=== PATIENT | female | born 1995 | race Caucasian/White ===

== ENCOUNTER 2018-05-12 14:42 | Emergency (ER) | payer BC ==
[2018-05-12 15:11] VITALS: RESP 18
--- NOTE | 2018-05-12 17:12 | ED ---
Female Urogenital HPI - General Chief complaint: Abdominal Pain Stated complaint: and spotting Time Seen by Provider: 05/12/18 16:50 Source: patient, RN notes reviewed, old records reviewed Mode of arrival: ambulatory Limitations: no limitations - History of Present Illness Initial comments: This is a 22-year-old female the ER. Patient presents today for evaluation regards to history of positive test, positive vaginal bleeding and spotting. Occasional abdominal pain and cramping. Patient has a history of 1 prior positive she said she is currently with live vaginal delivery. Patient has no fevers. No dysuria. Patient did take Plan B after having sexual intercourse in the case that she thinks resulted in this . MD Complaint: vaginal bleeding, pelvic pain -: days(s) Location: suprapubic Radiation: non-radiating Severity: mild Severity scale (1-10): 2 Quality: cramping Consistency: intermittent Improves with: none Worsens with: none Last Menstrual Period: 04/03/18 Patient : Yes Associated Symptoms: denies other symptoms - Related Data Home Medications Medication Instructions Recorded Confirmed Albuterol Inhaler [Ventolin Hfa 2 puff INHALATION RT-Q8H 05/12/18 05/12/18 Inhaler] Allergies Allergy/AdvReac Type Severity Reaction Status Date / Time Penicillins Allergy Rash/Hives Verified 05/12/18 17:10 Review of Systems ROS Statement: Those systems with pertinent positive or pertinent negative responses have been documented in the HPI. ROS Other: All systems not noted in ROS Statement are negative. Past Medical History Past Medical History: Asthma, Skin Disorder History of Any Multi-Drug Resistant Organisms: None Reported Past Surgical History: No Surgical Hx Reported Past Anesthesia/Blood Transfusion Reactions: No Reported Reaction Past Psychological History: No Psychological Hx Reported Smoking Status: Current every day smoker Past Alcohol Use History: None Reported Past Drug Use History: None Reported General Exam Limitations: no limitations General appearance: alert, in no apparent distress Head exam: Present: atraumatic, normocephalic, normal inspection Eye exam: Present: normal appearance, PERRL, EOMI. Absent: scleral icterus, conjunctival injection, periorbital swelling ENT exam: Present: normal exam, mucous membranes moist Neck exam: Present: normal inspection. Absent: tenderness, meningismus, lymphadenopathy Respiratory exam: Present: normal lung sounds bilaterally. Absent: respiratory distress, wheezes, rales, rhonchi, stridor Cardiovascular Exam: Present: regular rate, normal rhythm, normal heart sounds. Absent: systolic murmur, diastolic murmur, rubs, gallop, clicks GI/Abdominal exam: Present: soft, normal bowel sounds. Absent: distended, tenderness, guarding, rebound, rigid Extremities exam: Present: normal inspection, full ROM, normal capillary refill. Absent: tenderness, pedal edema, joint swelling, calf tenderness Back exam: Present: normal inspection Neurological exam: Present: alert, oriented X3, CN II-XII intact Psychiatric exam: Present: normal affect, normal mood Skin exam: Present: warm, dry, intact, normal color. Absent: rash Course Vital Signs 05/12/18 05/12/18 15:08 17:30 Temperature 98.3 F Pulse Rate 83 74 Respiratory 18 18 Rate Blood Pressure 101/70 96/56 O2 Sat by Pulse 98 98 Oximetry - Reevaluation(s) Reevaluation #1: 05/12/18 19:12 Medical record reviewed Reevaluation #2: 05/12/18 19:12 Patient spoke at length regarding possibilities of including threatened or missed versus ectopic although unlikely with positive findings of early IUP. Patient will follow-up with OB Dr. Lyle Medical Decision Making - Medical Decision Making 22 female the ER for evaluation, positive , beta 5000 unable to tell if IP early versus an . Patient will follow up with OB in the future - Lab Data Lab Results 05/12/18 05/12/18 05/12/18 Range/Units 17:05 17:05 17:16 HCG, Quant mIU/mL Urine Color Light Yellow Urine Appearance Clear (Clear) Urine pH 6.5 (5.0-8.0) Ur Specific [place] 1.008 (1.001-1.035) Urine Protein Negative (Negative) Urine Glucose (UA) Negative (Negative) Urine Ketones Negative (Negative) Urine Blood Negative (Negative) Urine Nitrite Negative (Negative) Urine Bilirubin Negative (Negative) Urine Urobilinogen <2.0 (<2.0) mg/dL Ur Leukocyte Esterase Negative (Negative) Urine HCG, Qual Detected (Not Detectd) Blood Type B Positive Blood Type Recheck No 05/12/18 Range/Units 17:16 HCG, Quant 5876.9 mIU/mL Urine Color Urine Appearance (Clear) Urine pH (5.0-8.0) Ur Specific [place] (1.001-1.035) Urine Protein (Negative) Urine Glucose (UA) (Negative) Urine Ketones (Negative) Urine Blood (Negative) Urine Nitrite (Negative) Urine Bilirubin (Negative) Urine Urobilinogen (<2.0) mg/dL Ur Leukocyte Esterase (Negative) Urine HCG, Qual (Not Detectd) Blood Type Blood Type Recheck - Radiology Data Radiology results: report reviewed (Ultrasound may be significant for some early gestational IUP), image reviewed Disposition Clinical Impression: Threatened , Missed , Abdominal pain affecting Disposition: HOME SELF-CARE Condition: Undetermined Instructions (If sedation given, give patient instructions): Threatened Miscarriage (ED), Abdominal Pain in (ED) Is patient prescribed a controlled substance at d/c from ED?: No Referrals: Garrett Almeida MD [Primary Care Provider] - 1-2 days
[2018-05-12 17:33] LABS: Appearance,Urine Clear (Clear); Bilirubin,Urine Negative (Negative); Blood,Urine Negative (Negative); Color,Urine Light Yellow; Glucose,Urine (UA) Negative (Negative); Ketones,Urine Negative (Negative); Leukocyte Esterase,Urine Negative (Negative); Nitrite,Urine Negative (Negative); PH, Urine 6.5 (5.0-8.0); Protein,Urine Negative (Negative); Specific Gravity,Urine 1.008 (1.001-1.035); Urobilinogen,Urine <2.0 mg/dL (<2.0)
--- NOTE | 2018-05-12 18:39 | US ---
EXAMINATION TYPE: Transabdominal DATE OF EXAM: 05/12/2018 6:12 PM COMPARISON: NONE CLINICAL HISTORY: pain. spotting and cramping with EXAM PERFORMED: Transvaginal (TV) and Transabdominal (TA) EXAM MEASUREMENTS: GESTATIONAL AGE / DATING Physician Established: Not yet established Dates by LMP: ( 5 weeks/6 days) EDC: 01/06/2019 Dates by First Scan: No previous this is first scan Dates by Current Scan for: No IUP seen at this time MATERNAL ANATOMY Uterus: 7.9 x 4.7 x 5.5 cm Right Ovary: 3.4 x 1.7 x 2.9 cm Left Ovary: 3.7 x 2.3 x 2.6 cm Post CDS / Adnexa: wnl Presence of free fluid: none Presence of corpus luteal cyst: mixed lesion with peripheral flow on left ovary measures 2.4 x 1.7 x 1.6 cm. GESTATION / SURVEY CRL: not identified MSD: 0.7 cm (measures out of range ) Date of LMP: 04/01/2018 Beta HcG (if available): 5876 IMPRESSION: SMALL GESTATIONAL SAC IN UTERUS THAT MEASURES OUT OF RANGE. POSSIBLE EARLY IUP; SERIAL BETA HCG CAN F URTHER CHARACTERIZE.
[2018-05-12 19:27] VITALS: BP 114/84; PULSE 72; TEMP 98.7
[2018-05-13 15:25] LABS: C. trachomatis,PCR Negative (Neg,Equiv); Chlamydia trachomatis Source Urine; N. gonorrhoeae,PCR Negative (Neg,Equiv); Neisseria Source Urine
== END 2018-05-12 19:20 | disposition home or self-care (01) ==
LOC: EC 14:42
DX: O02.1 Missed abortion (principal); O26.891 Other specified pregnancy related conditions, first trimester; R10.9 Unspecified abdominal pain; O99.511 Diseases of the respiratory system complicating pregnancy, first trimester; J45.909 Unspecified asthma, uncomplicated; O99.331 Smoking (tobacco) complicating pregnancy, first trimester; F17.200 Nicotine dependence, unspecified, uncomplicated; Z3A.01 Less than 8 weeks gestation of pregnancy; Z79.899 Other long term (current) drug therapy; Z88.0 Allergy status to penicillin
CPT/HCPCS: 36415; 76801; 76817; 81003; 81025; 84702; 86900; 86901; 87086; 87491; 87591; 99284

== ENCOUNTER 2020-03-18 06:00 | Inpatient (IN) | payer BC, OTHER ==
[2020-03-18] MEDS ORDERED: METHYLERGONOVINE 0.2 MG/ML 1 ML AMP IM PRN (07:10)
[2020-03-18] MEDS ORDERED: LIDOCAINE 0.5% (PF) 5 MG/ML (50 ML SDV) SQ PRN (07:10)
[2020-03-18] MEDS ORDERED: CARBOPROST TROMETHAMINE 250 MCG/ML 1 ML AMP IM PRN (07:10)
[2020-03-18] MEDS ORDERED: TERBUTALINE 1 MG/ML VIAL SQ PRN (07:10)
[2020-03-18] MEDS ORDERED: OXYTOCIN 10 UNIT/ML 1 ML VIAL IM PRN (07:10)
[2020-03-18] MEDS ORDERED: OXYTOCIN 30 UNITS/500 ML NS 30 UNIT in SALINE 1 500ML.BAG IV SCH (07:15)
[2020-03-18] MEDS: LACTATED RINGERS 1,000 ML IV SCH ×3 (07:15→14:33)
[2020-03-18 07:41] LABS: Basophils # (A) 0.1 k/uL (0-0.2); Basophils % (A) 1 %; Eosinophils # (A) 0.5 k/uL (0-0.7); Eosinophils % (A) 3 %; HCT 38.7 % (34.0-46.0); HGB 13.5 gm/dL (11.4-16.0); Lymphocytes # (A) 2.6 k/uL (1.0-4.8); Lymphocytes % (A) 18 %; MCH 30.8 pg (25.0-35.0); MCHC 34.8 g/dL (31.0-37.0); MCV 88.5 fL (80.0-100.0); Mean Platelet Volume 7.4; Monocytes # (A) 0.7 k/uL (0-1.0); Monocytes % (A) 5 %; Neutrophils # (A) 9.9 k/uL (1.3-7.7); Neutrophils % (A) 71 %; Platelet Count 251 k/uL (150-450); RBC 4.38 m/uL (3.80-5.40); WBC 13.8 k/uL (3.8-10.6)
--- NOTE | 2020-03-18 08:20 | P.HPOB ---
History of Present Illness H&P Date: 03/18/20 Chief Complaint: Intrauterine at term: Induction of labor Patient is a 24 she'll at 39 weeks gestation who desires induction of labor. Risks and benefits were reviewed with patient in detail and all questions were answered for her prior to initiation of induction. She plans to use an epidural today for analgesia. heart tones show a reactive tracing and is category 1. Artificial rupture membranes was performed with clear fluid noted in her dilation 2 cm 70% effaced and -3 station. All the questions are answered for her at this time. Her course was, complicated by history of delivery. Discussion on progesterone to try and delay that was done with the patient but she declined. She did notice during the course the pregnan cy firm mass or right upper quadrant she was sent to general surgeon in the cleavage is a lipoma that will be excised following delivery. Past Medical History Past Medical History: Asthma, Skin Disorder History of Any Multi-Drug Resistant Organisms: None Reported Past Surgical History: No Surgical Hx Reported Past Anesthesia/Blood Transfusion Reactions: No Reported Reaction Smoking Status: Never smoker Medications and Allergies Home Medications Medication Instructions Recorded Confirmed Type Acyclovir 400 mg PO DAILY 03/18/20 03/18/20 History Albuterol Inhaler [Ventolin Hfa 2 puff INHALATION RT-QID 03/18/20 03/18/20 History Inhaler] Pnv No.95/Ferrous Fum/Folic AC 1 each PO DAILY 03/18/20 03/18/20 History [ Multivitamin Tablet] Allergies Allergy/AdvReac Type Severity Reaction Status Date / Time Penicillins Allergy Rash/Hives Verified 03/18/20 07:10 Exam Osteopathic Statement: *. No significant issues noted on an osteopathic structural exam other than those noted in the History and Physical/Consult. Vital Signs Temp Pulse Resp BP 03/18/20 07:09 97.3 F L 70 18 115/72 Intake and Output 03/17/20 03/18/20 03/18/20 22:59 06:59 14:59 Other: Weight 79.379 kg - OBG Physical Exam Breast: both: normal (no masses) Abdomen: bowel sounds normal, no diffuse tenderness, no bruit present, no guarding noted, no hepatomegaly, no splenomegaly, no mass Vulva: both: normal Vagina: normal moisture, no discharge Cervix: no lesion, no discharge Uterus: normal size, normal contour Adnexa: both: normal Anus/Rectum: normal perianal skin, no rectal mass, no hemorrhoids, heme negative Results Result Diagrams: 03/18/20 07:15 Abnormal Lab Results - Last 24 Hours (Table) 03/18/20 Range/Units 07:15 WBC 13.8 H (3.8-10.6) k/uL Neutrophils # 9.9 H (1.3-7.7) k/uL
[2020-03-18] MEDS ORDERED: SODIUM CHLORIDE 0.9% 100 ML BAG ONE (10:50)
[2020-03-18] MEDS ORDERED: fentaNYL (PF) 50 MCG/ML 5 ML AMP ONE (10:50)
[2020-03-18] MEDS ORDERED: ROPIVACAINE 5MG/ML 20ML VIAL ONE (10:50)
[2020-03-18] MEDS: OXYTOCIN 30 UNITS/500 ML NS 30 UNIT in SALINE 1 500ML.BAG IV SCH ×2 (14:41→15:59)
[2020-03-18] MEDS ORDERED: HYDROCORTISONE 2.5% RECTAL CREAM 30 GM TUBE RECTAL PRN (15:11)
[2020-03-18] MEDS ORDERED: diphenhydrAMINE 50 MG/ML 1 ML VIAL IVP PRN ×2 (15:11)
[2020-03-18] MEDS ORDERED: IBUPROFEN 600 MG TAB PO PRN (15:11)
[2020-03-18] MEDS ORDERED: diphenhydrAMINE 50 MG CAP PO PRN (15:11)
[2020-03-18] MEDS ORDERED: diphenhydrAMINE 25 MG CAP PO PRN (15:11)
[2020-03-18] MEDS ORDERED: SIMETHICONE 80 MG CHEWABLE PO PRN (15:11)
[2020-03-18] MEDS ORDERED: ZOLPIDEM 5 MG TAB PO PRN (15:11)
[2020-03-18] MEDS ORDERED: LANOLIN CREAM 5 GM TUBE TOPICAL PRN (15:11)
[2020-03-18] MEDS ORDERED: ACETAMINOPHEN TAB 325 MG TAB PO PRN (15:11)
[2020-03-18] MEDS ORDERED: BENZOCAINE/MENTHOL SPRAY 1 GM/SPRAY AEROSOL TOPICAL PRN (15:11)
--- NOTE | 2020-03-18 16:25 | P.PROBDLV ---
Vaginal Delivery Note - . Vaginal Delivery Note: She progressed to complete and pushing with spontaneous vaginal delivery of a viable male over intact perineum. Following delivery of the head from left occiput anterior position gentle downward traction was performed and then upper traction to deliver the posterior shoulder and remainder the baby. Nursery personnel was present to assume care. Baby was placed on mother's abdomen and the umbilical cord was allowed to pulsate for 30 seconds prior to clamping and cutting. Mouth nares were also bulb suctioned. Placenta was then delivered intact Pitocin was added to the IV. scores and weight are pending, but both mother and baby are currently stable following delivery.
[2020-03-18] MEDS: SENNOSIDES-DOCUSATE SODIUM 1 EACH TAB PO SCH (20:18)
[2020-03-18] MEDS ORDERED: DIPH,PERTUS(ACELL)TETVAC-LF 0.5 ML VIAL IM ONE (20:25)
[2020-03-19] MEDS: SENNOSIDES-DOCUSATE SODIUM 1 EACH TAB PO SCH ×2 (00:33→19:37)
[2020-03-19 05:35] LABS: Basophils # (A) 0.1 k/uL (0-0.2); Basophils % (A) 0 %; Eosinophils # (A) 0.3 k/uL (0-0.7); Eosinophils % (A) 2 %; HGB 11.7 gm/dL (11.4-16.0); Lymphocytes # (A) 2.9 k/uL (1.0-4.8); Lymphocytes % (A) 14 %; MCH 29.8 pg (25.0-35.0); MCHC 33.4 g/dL (31.0-37.0); MCV 89.2 fL (80.0-100.0); Mean Platelet Volume 7.6; Monocytes # (A) 0.9 k/uL (0-1.0); Monocytes % (A) 4 %; Neutrophils # (A) 15.6 k/uL (1.3-7.7); Neutrophils % (A) 78 %; Platelet Count 232 k/uL (150-450); RBC 3.92 m/uL (3.80-5.40); RDW 13.3 % (11.5-15.5)
--- NOTE | 2020-03-19 12:40 | P.PNOBGVD ---
Subjective - Subjective Principal diagnosis: Status post vaginal delivery day #1 Interval history: Patient is doing well. She is breast-feeding. Lochia is decreasing. Pain is fairly well controlled without taking any pain medication. Patient reports: Reports appetite normal, Reports voiding normally, Reports pain well controlled, Reports ambulating normally : doing well, nursing well Objective - Latest Vital Signs Latest vital signs: Vital Signs Temp Pulse Resp BP 03/19/20 08:15 97.9 F 74 16 106/70 03/19/20 03:45 98.4 F 76 20 117/66 03/19/20 00:00 98.7 F 99 20 118/73 03/18/20 20:00 98.6 F 96 20 114/74 03/18/20 16:45 97.9 F 76 17 112/57 03/18/20 16:15 78 18 118/69 03/18/20 15:45 97.4 F L 75 18 107/69 03/18/20 15:30 78 18 98/66 03/18/20 15:15 74 16 103/65 03/18/20 15:00 97.7 F 77 17 106/57 03/18/20 14:45 73 17 127/58 Intake and Output 03/18/20 03/19/20 03/19/20 22:59 06:59 14:59 Intake Total 914.2 Balance 914.2 Intake: Intake, IV Titration 434.2 Amount Oxytocin 30 Units/500 ml 434.2 Ns 30 unit In Saline 1 500ml.bag @ Per Protocol IV .Q0M [facility] Rx#:[id number] Oral 480 Other: # Voids 2 2 - Exam Extremities: Present: normal. Absent: tenderness Abdomen: Present: normal appearance, soft. Absent: distention, tenderness Uterus: Present: normal, firm. Absent: tenderness - Labs Labs: Abnormal Lab Results - Last 24 Hours (Table) 03/19/20 Range/Units 05:21 WBC 20.0 H (3.8-10.6) k/uL Neutrophils # 15.6 H (1.3-7.7) k/uL Assessment and Plan Assessment: Status post vaginal delivery day #1 Leukocytosis-possible early endometritis Plan: We'll continue observation for 1 more day. Will start oral antibiotics for possible early endometritis based on elevated white count. Patient is agreeable to this plan. Will start on clindamycin and doxycycline since she is ALLERGIC to penicillin.
[2020-03-19] MEDS: DOXYCYCLINE 100 MG CAP PO SCH ×2 (13:11→21:36)
[2020-03-19] MEDS: CLINDAMYCIN 150 MG CAP PO SCH ×2 (15:56→21:36)
[2020-03-20 00:10] VITALS: TEMP 98.2
[2020-03-20 06:51] LABS: Basophils # (A) 0.1 k/uL (0-0.2); Basophils % (A) 1 %; Eosinophils # (A) 0.6 k/uL (0-0.7); Eosinophils % (A) 4 %; HCT 37.5 % (34.0-46.0); Lymphocytes # (A) 2.7 k/uL (1.0-4.8); Lymphocytes % (A) 20 %; MCH 30.8 pg (25.0-35.0); MCHC 34.6 g/dL (31.0-37.0); Mean Platelet Volume 7.2; Monocytes # (A) 0.7 k/uL (0-1.0); Monocytes % (A) 5 %; Neutrophils # (A) 9.4 k/uL (1.3-7.7); Neutrophils % (A) 69 %; Platelet Count 242 k/uL (150-450); RBC 4.21 m/uL (3.80-5.40); RDW 13.2 % (11.5-15.5); WBC 13.6 k/uL (3.8-10.6)
--- NOTE | 2020-03-20 06:52 | P.DS ---
Providers Date of admission: 03/18/20 06:54 Expected date of discharge: 03/20/20 Attending physician: José Harding Primary care physician: Stated None Hospital Course: This is a 24-year-old female 3 para 1 at 39 and one sevenths weeks who presented for induction of labor. She underwent oxytocin induction of labor and delivered vaginally a viable male on 03/18/2020 with scores of 9 at 1 minute and 9 at 5 minutes and infant weight is 6 lbs. 11 oz. Her course was essentially uncomplicated. She did however have a elevated white count of 20,000 on day #1. She had no fever and no significant pain, however I presumptively treated with antibiotics for possible early endometritis. She has been tolerating clindamycin and doxycycline without difficulty. White count this morning is pending. Vital signs are stable. Abdomen is soft with fundus firm and nontender. Extremity show negative Homans. Impression is status post vaginal delivery day #2. Plan is to discharge home today. Routine instructions are given. She will be given a prescription for ibuprofen along with clindamycin and Oxycel clean to complete 7 days of treatment. She is advised to call the office if she has any further questions or concerns prior to her appointment time. She is advised follow-up Dr. Harding in 6 weeks for a check. Procedures: Spontaneous vaginal delivery of a viable male infant on 03/18/2020 Patient Condition at Discharge: Stable Plan - Discharge Summary Discharge Rx Participant: No New Discharge Prescriptions: New Clindamycin [Cleocin] 300 mg PO TID #18 cap Ibuprofen [Motrin] 600 mg PO Q6HR PRN #60 tab PRN Reason: Mild Pain Or Fever >= 100.5 Doxycycline [Vibramycin] 100 mg PO BID #12 cap Continue Albuterol Inhaler [Ventolin Hfa Inhaler] 2 puff INHALATION RT-QID Pnv No.95/Ferrous Fum/Folic AC [ Multivitamin Tablet] 1 each PO DAILY Acyclovir 400 mg PO DAILY Discharge Medication List Acyclovir 400 mg PO DAILY 03/18/20 [History] Albuterol Inhaler [Ventolin Hfa Inhaler] 2 puff INHALATION RT-QID 03/18/20 [History] Pnv No.95/Ferrous Fum/Folic AC [ Multivitamin Tablet] 1 each PO DAILY 03/18/20 [History] Clindamycin [Cleocin] 300 mg PO TID #18 cap 03/20/20 [Rx] Doxycycline [Vibramycin] 100 mg PO BID #12 cap 03/20/20 [Rx] Ibuprofen [Motrin] 600 mg PO Q6HR PRN #60 tab 03/20/20 [Rx] Follow up Appointment(s)/Referral(s): José Harding DO [Doctor of Osteopathic Medicine] - 6 Weeks Activity/Diet/Wound Care/Special Instructions: Instructions 1. Do not begin any exercise program for 3 weeks. 2. Do not resume sexual relations for 3 weeks or longer if uncomfortable. 3. You may take tub baths or showers at any time. 4. You may use tampons if desired after 3 weeks. 5. Keep the area of episiotomy (stitches) clean and dry. 6. If you are not nursing, wear a good fitting, supportive bra during the day and limit fluid intake for at least 1 week to prevent breast engorgement. 7. Call the office, [phone], within the next week to make appointment for your 6 week checkup if it has not already been made. 8. Report any of the following occurrences to the doctor promptly: a. Heavy, excessive bleeding b. Chills, fever c. Burning or frequency of urination d. Pain or redness and breasts if nursing e. Increasing pain or swelling in episiotomy (stitches). In addition to the above instructions, the following additional should be followed: 1. No heavy lifting or straining (exercising) until after 6 week checkup. 2. Keep abdominal incision clean and dry: You may wear a dressing if more comfortable. 3. Make office appointment for 10 days after going home or as instructed by her doctor. Discharge Disposition: HOME SELF-CARE
[2020-03-20] MEDS: SENNOSIDES-DOCUSATE SODIUM 1 EACH TAB PO SCH (07:45)
[2020-03-20] MEDS: DOXYCYCLINE 100 MG CAP PO SCH (08:05)
[2020-03-20] MEDS: CLINDAMYCIN 150 MG CAP PO SCH (08:06)
[2020-03-20 08:17] VITALS: BP 128/67; PULSE 80; RESP 16
[2020-03-20] MEDS ORDERED: ACYCLOVIR 200 MG CAP PO SCH (09:00)
[2020-03-20] MEDS ORDERED: PRENATAL VIT-IRON-FOLIC ACID 1 EACH CAP PO SCH (09:00)
== END 2020-03-20 14:10 | disposition home or self-care (01) | DRG 807 ==
LOC: 4FBP 06:54
PROVIDERS: ADMIT Obstetrics & Gynecology; ATTEND Obstetrics & Gynecology
PROC: 10E0XZZ Delivery of Products of Conception, External Approach (ICD-10-PCS; principal; 2020-03-18)
PROC: 3E033VJ Introduction of Other Hormone into Peripheral Vein, Percutaneous Approach (ICD-10-PCS; 2020-03-18)
PROC: 10907ZC Drainage of Amniotic Fluid, Therapeutic from Products of Conception, Via Natural or Artificial Opening (ICD-10-PCS; 2020-03-18)
PROC: 3E0R3BZ Introduction of Anesthetic Agent into Spinal Canal, Percutaneous Approach (ICD-10-PCS; 2020-03-18)
DX: O99.52 Diseases of the respiratory system complicating childbirth (principal); Z37.0 Single live birth; J45.909 Unspecified asthma, uncomplicated; O99.72 Diseases of the skin and subcutaneous tissue complicating childbirth; L40.8 Other psoriasis; D17.9 Benign lipomatous neoplasm, unspecified; O99.12 Other diseases of the blood and blood-forming organs and certain disorders involving the immune mechanism complicating childbirth; O86.12 Endometritis following delivery; Z3A.39 39 weeks gestation of pregnancy; Z79.899 Other long term (current) drug therapy; Z88.0 Allergy status to penicillin
CPT/HCPCS: 85025; 86850; 86900; 86901; 90715

== ENCOUNTER 2020-05-13 06:55 | Day surgery (SDC) | payer BC, OTHER ==
[2020-05-11 14:24] VITALS: BMI 30.2
[~2020-05-13 06:55] MED LIST: ACETAMINOPHEN TAB 500 MG TAB PO PRN; DEXAMETHASONE SOD PHOSPHATE 4 MG/ML 1 ML VIAL IV ONE; GABAPENTIN 300 MG CAP PO PRN; HEPARIN SODIUM,PORCINE 5,000 UNIT/ML 1 ML VIAL SQ PRN; LACTATED RINGERS 1,000 ML IV SCH; MELOXICAM 7.5 MG TAB PO PRN; MIDAZOLAM 2 MG/2 ML VIAL IV PRN; ONDANSETRON 4 MG/2 ML VIAL IVP ONE; Pre Op ABX Message 1 EACH MISC MISCELLANE ONE; SCOPOLAMINE 1.5MG/72HR PATCH TRANSDERM ONE
--- NOTE | 2020-05-13 06:55 | P.GSHP ---
History of Present Illness H&P Date: 05/13/20 CHIEF COMPLAINT: Flank mass HISTORY OF PRESENT ILLNESS: The patient is a 24 year-old female with history of mass along the right flank ongoing for over 6 months. She reports discomfort from the growth. She presents today for surgical excision. PAST MEDICAL HISTORY: Please see list. PAST SURGICAL HISTORY: Please see list. MEDICATIONS: Please see list. ALLERGIES: Please see list. SOCIAL HISTORY: Please see list. FAMILY HISTORY: No reports of Crohn disease or ulcerative colitis. REVIEW OF ORGAN SYSTEMS: CONSTITUTIONAL: No reports of fevers or chills. GI: Denies any blood in stools or constipation. PHYSICAL EXAM: VITAL SIGNS: Stable Musculoskeletal: No clubbing cyanosis or edema SKIN: Right flank mass 4-cm GENERAL: Well developed and in no acute distress. Pleasant. HEENT: No sclera icterus. Extraocular movements grossly intact. Moist buccal mucosa. Head is atraumatic, normocephalic. Hears conversational speech. No nasal drainage. NECK: Supple without lymphadenopathy. No JV distention. CHEST: Non-labored respirations and equal bilateral excursions. CARDIOVASCULAR: Regular rate and rhythm. Palpable 2+ radial pulses. ABDOMEN: Soft. Non-tender. Nondistended. NEUROLOGIC: No focal or lateralizing signs. PSYCH: Appropriate affect. Alert and oriented to person, place and time. ASSESSMENT: 1. Right flank mass, 5-cm PLAN: 1. Will proceed of excision of subcutaneous tumor along the right flank 2. DVT prophylaxis. 3. Antibiotic prophylaxis. 4. Time of recovery, at least one week. 5. Recommend general for intra-muscular tumor Past Medical History Past Medical History: Asthma, Skin Disorder Additional Past Medical History / Comment(s): psoriasis History of Any Multi-Drug Resistant Organisms: None Reported Past Surgical History: No Surgical Hx Reported Past Anesthesia/Blood Transfusion Reactions: No Reported Reaction Additional Past Anesthesia/Blood Transfusion Reaction / Comment(s): has only had am epidural anesthesia Smoking Status: Former smoker - Past Family History Mother Family Medical History: No Reported History Medications and Allergies Home Medications Medication Instructions Recorded Confirmed Type Albuterol Inhaler [Ventolin Hfa 2 puff INHALATION RT-QID PRN 03/18/20 05/11/20 History Inhaler] Pnv No.95/Ferrous Fum/Folic AC 1 each PO DAILY 03/18/20 05/11/20 History [ Multivitamin Tablet] Deblitane Control Pill 1 tab PO QAM 05/11/20 05/11/20 History Allergies Allergy/AdvReac Type Severity Reaction Status Date / Time Penicillins Allergy Rash/Hives Verified 05/11/20 14:15
[2020-05-13] MEDS ORDERED: HYDROmorphone 0.5 MG/0.5 ML SYRINGE IVP PRN (07:00)
[2020-05-13 07:31] VITALS: TEMP 97.2
[2020-05-13] MEDS ORDERED: LIDOCAINE 1% (10MG/ML) FOR IV START INTRADERMA ONE (07:39)
[2020-05-13] MEDS ORDERED: fentaNYL (PF) 50 MCG/ML 2 ML AMP ONE (08:06)
[2020-05-13] MEDS ORDERED: SUCCINYLCHOLINE CHLORIDE 100 MG/5 ML SYR IV ONE (08:06)
[2020-05-13] MEDS ORDERED: LIDOCAINE 1% INJ 10MG/ML (20 ML MDV) ONE (08:06)
[2020-05-13] MEDS ORDERED: PROPOFOL 10 MG/ML 20 ML VIAL IV ONE (08:06)
[2020-05-13] MEDS ORDERED: LIDOCAINE 1%-EPI 1:100,000 20 ML VIAL SQ ONE (08:10)
--- NOTE | 2020-05-13 09:21 | P.OP ---
Date of Procedure: 05/13/20 Description of Procedure: SURGEON: ALEXSANDRA DICKERSON MD IT APPLICATION ADMINISTRATOR: None. PREOPERATIVE DIAGNOSES: 1. Right flank tumor 2. Depressive disorder 3. Asthma 4. Breast feeding status POSTOPERATIVE DIAGNOSES: 1. Deep intramuscular right flank tumor, 6 x 4 cm 2. Depressive disorder 3. Asthma 4. Breast feeding status PROCEDURES PERFORMED: 1. Excision of deep intramuscular right flank mass, 6 x 4 cm 2. Intermediate closure right flank incision, 9-cm Anesthesia: GETA, local Estimated Blood Loss (ml): 10 Pathology: other (Right flank lipoma) Condition: stable Disposition: floor COMPLICATIONS: None. Operative Findings: 1. Deep subcutaneous tissue lipoma 15 x 6 cm via 17 cm incision along the left flank 2. Patient placed in right lateral decubitus position for excision of tumor INDICATIONS: The patient is a 24-year-old female who presents with symptomatic right flank tumor. Benefits and risks of surgical intervention were described including bleeding, infection. Informed consent was obtained. DESCRIPTION OR PROCEDURE: In the preoperative area, the area of concern was marked with indelible marker. Patient was brought into the operating room. After general induction, she was positioned in left lateral decubitus position. The flank was prepped and draped in a standard sterile fashion with ChloraPrep. Timeout protocol was confirmed with the surgical team regarding the patient's name, procedure to be performed including preoperative medications. DVT prophylaxis was confirmed. Ioban was placed to minimize skin carmencita. A field block was placed of the right flank. An incision using #15 blade was made along the marking into the dermis and subcutaneous tissue. Electro-Bovie cautery was used to enter deep subcutaneous tissue and fascia where a large intra-muscular fatty tumor was removed in total from the serratus anterior, 6 x 4 cm. 0 Vicryl for the deep subcutaneous tissue followed 3-0 Monocryl in a running subcuticular fashion was placed along the dermis. Length of incision was 9-cm. The skin was cleansed and Exofin tape with liquid was applied for a third layer closure. The incision was covered with Optifoam dressing. Local anesthetic was placed. At the end of the procedure, needle, sponge, and instrument count was verified correct by surgical supervisor. The patient tolerated the procedure well. Plan - Discharge Summary Discharge Rx Participant: Yes New Discharge Prescriptions: New Ibuprofen [Motrin] 600 mg PO Q8HR PRN #30 tab PRN Reason: Pain Acetaminophen Tab [Tylenol Tab] 1,000 mg PO Q6HR PRN #30 tablet PRN Reason: Pain Continue Albuterol Inhaler [Ventolin Hfa Inhaler] 2 puff INHALATION RT-QID PRN PRN Reason: sob Pnv No.95/Ferrous Fum/Folic AC [ Multivitamin Tablet] 1 each PO DAILY Deblitane Control Pill 1 tab PO QAM Discharge Medication List Albuterol Inhaler [Ventolin Hfa Inhaler] 2 puff INHALATION RT-QID PRN 03/18/20 [History] Pnv No.95/Ferrous Fum/Folic AC [ Multivitamin Tablet] 1 each PO DAILY 03/18/20 [History] Deblitane Control Pill 1 tab PO QAM 05/11/20 [History] Acetaminophen Tab [Tylenol Tab] 1,000 mg PO Q6HR PRN #30 tablet 05/13/20 [Rx] Ibuprofen [Motrin] 600 mg PO Q8HR PRN #30 tab 05/13/20 [Rx] Follow up Appointment(s)/Referral(s): Alexsandra Dickerson MD [STAFF PHYSICIAN] - 05/17/20 Patient Instructions/Handouts: Excision of Skin Lesion (DC) Activity/Diet/Wound Care/Special Instructions: PLEASE DISCARD BREAST MILK FOR TODAY. May resume tomorrow. NO EXTREME STRETCHING OF THE BACK See instructions on dressing. DO NOT REMOVE DRESSING. No lifting over 10 pounds in 2 weeks, May 27June shower. No bath tub soaks for two weeksMay 27 Diet as tolerated. Discharge Disposition: HOME SELF-CARE
[2020-05-13 09:48] VITALS: RESP 18
[2020-05-13 10:05] VITALS: BP 118/67; PULSE 70
== END 2020-05-13 10:37 | disposition home or self-care (01) ==
LOC: OR 06:55
PROVIDERS: ATTEND Surgery Plastic and Reconstructive Surgery
DX: D17.1 Benign lipomatous neoplasm of skin and subcutaneous tissue of trunk (principal); Z87.891 Personal history of nicotine dependence; Z79.3 Long term (current) use of hormonal contraceptives; Z88.0 Allergy status to penicillin; F32.9 Major depressive disorder, single episode, unspecified
CPT/HCPCS: 81025; 88304; 21933; J1644; J1100; J0690; J2405; J2001; J3010; J0330; J2704

== ENCOUNTER 2020-11-08 16:39 | Emergency (ER) | payer BC, OTHER ==
[2020-11-08 17:23] VITALS: BP 97/65; PULSE 70; RESP 18; TEMP 99
--- NOTE | 2020-11-08 18:23 | ED ---
Female Urogenital HPI - General Chief complaint: Vaginal Bleeding Stated complaint: 5wks Preg/Vaginal Bleeding Time Seen by Provider: 11/08/20 17:52 Source: patient, RN notes reviewed Mode of arrival: ambulatory Limitations: no limitations - History of Present Illness Initial comments: 24-year-old female presents emergency Department with chief complaint of vaginal bleeding early . Patient states she's rested for 5 weeks she is G for and seen Dr. Jett. She has not had her first appointment. Patient states that she has mild bleeding and minimal no pain. Denies any dysuria no hematuria patient offers no complaints. Last Menstrual Period: 10/10/20 - Related Data Home Medications Medication Instructions Recorded Confirmed Albuterol Inhaler [Ventolin Hfa 2 puff INHALATION RT-QID PRN 03/18/20 05/13/20 Inhaler] Pnv No.95/Ferrous Fum/Folic AC 1 each PO DAILY 03/18/20 05/13/20 [ Multivitamin Tablet] Deblitane Control Pill 1 tab PO QAM 05/11/20 05/13/20 Previous Rx's Medication Instructions Recorded Acetaminophen Tab [Tylenol Tab] 1,000 mg PO Q6HR PRN #30 tablet 05/13/20 Ibuprofen [Motrin] 600 mg PO Q8HR PRN #30 tab 05/13/20 Allergies Allergy/AdvReac Type Severity Reaction Status Date / Time Penicillins Allergy Rash/Hives Verified 11/08/20 17:23 Review of Systems ROS Statement: Those systems with pertinent positive or pertinent negative responses have been documented in the HPI. ROS Other: All systems not noted in ROS Statement are negative. Past Medical History Past Medical History: Asthma, Skin Disorder Additional Past Medical History / Comment(s): psoriasis History of Any Multi-Drug Resistant Organisms: None Reported Past Surgical History: No Surgical Hx Reported Additional Past Surgical History / Comment(s): lipoma removed Past Anesthesia/Blood Transfusion Reactions: No Reported Reaction Additional Past Anesthesia/Blood Transfusion Reaction / Comment(s): has only had am epidural anesthesia Past Psychological History: Depression Smoking Status: Current every day smoker Past Alcohol Use History: Occasional Past Drug Use History: None Reported - Past Family History Mother Family Medical History: No Reported History General Exam Limitations: no limitations General appearance: alert, in no apparent distress Head exam: Present: atraumatic, normocephalic, normal inspection Neck exam: Present: normal inspection. Absent: tenderness, meningismus, lymphadenopathy Respiratory exam: Present: normal lung sounds bilaterally. Absent: respiratory distress, wheezes, rales, rhonchi, stridor Cardiovascular Exam: Present: regular rate, normal rhythm, normal heart sounds. Absent: systolic murmur, diastolic murmur, rubs, gallop, clicks GI/Abdominal exam: Present: soft, normal bowel sounds. Absent: distended, tenderness, guarding, rebound, rigid Back exam: Absent: CVA tenderness (R), CVA tenderness (L) Psychiatric exam: Present: normal affect, normal mood Course Vital Signs 11/08/20 17:16 Temperature 99.0 F Pulse Rate 70 Respiratory 18 Rate Blood Pressure 97/65 O2 Sat by Pulse 97 Oximetry Medical Decision Making - Medical Decision Making Ultrasound shows possible early versus failed . Patient will have repeat hCG in 2 days return parameters were discussed. Patient is positive blood type does not require RhoGAM. - Lab Data Lab Results 11/08/20 Range/Units 18:27 Coronavirus (PCR) Not Detected (Not Detectd) Disposition Clinical Impression: Threatened miscarriage Disposition: HOME SELF-CARE Condition: Stable Instructions (If sedation given, give patient instructions): Threatened Miscarriage (ED) Additional Instructions: Please return to the Emergency Department if symptoms worsen or any other concerns. Is patient prescribed a controlled substance at d/c from ED?: No Referrals: Garrett Almeida MD [Primary Care Provider] - 1-2 days Time of Disposition: 19:46
--- NOTE | 2020-11-08 19:18 | US ---
EXAMINATION TYPE: Transabdominal DATE OF EXAM: 11/08/2020 6:51 PM COMPARISON: NONE CLINICAL HISTORY: pain. Pt states light vaginal bleeding that started today EXAM PERFORMED: Transabdominal (TA) EXAM MEASUREMENTS: GESTATIONAL AGE / DATING Physician Established: Not yet established Dates by LMP: (4 weeks/1 days) EDC: 07/17/2021 Dates by First Scan: No previous this is first scan Dates by Current Scan for:(5 weeks/4 days) EDC: 07/07/2021 MATERNAL ANATOMY Uterus: 8.2 x 4.6 x 5.5 cm Right Ovary: 2.7 x 3.0 x 1.8 cm Left Ovary: 2.8 x 2.2 x 1.9 cm Post CDS / Adnexa: wnl Presence of free fluid: No Presence of subchorionic bleed: No GESTATION / SURVEY MSD: 0.9 cm (5 weeks/4 days) Beta HcG (if available): Not available at this time Possible early IUP visualized within uterus, only gestational sac visualized at this time IMPRESSION: Intrauterine saclike structure without pole identified. Findings may represent early gestation, however failed cannot be excluded. Recommend serial correlation with beta-hCG and follow-u p imaging as indicated. Otherwise no acute abnormality.
[2020-11-08 20:10] LABS: Appearance,Urine Clear (Clear); Bacteria,Urine Rare /hpf; Bilirubin,Urine Negative (Negative); Blood,Urine Small (Negative); Color,Urine Light Yellow; Glucose,Urine (UA) Negative (Negative); Ketones,Urine Negative (Negative); Leukocyte Esterase,Urine Small (Negative); Nitrite,Urine Negative (Negative); Protein,Urine Negative (Negative); Specific Gravity,Urine 1.009 (1.001-1.035); Squamous Epithelial Cell,Urine <1 /hpf (0-4); Urobilinogen,Urine <2.0 mg/dL (<2.0); WBC,Urine 7 /hpf (0-5)
== END 2020-11-08 20:08 | disposition home or self-care (01) ==
LOC: EC 16:39
DX: O20.0 Threatened abortion (principal); O99.331 Smoking (tobacco) complicating pregnancy, first trimester; Z3A.01 Less than 8 weeks gestation of pregnancy; J45.909 Unspecified asthma, uncomplicated; F32.9 Major depressive disorder, single episode, unspecified; F17.200 Nicotine dependence, unspecified, uncomplicated; Z72.89 Other problems related to lifestyle; Z79.51 Long term (current) use of inhaled steroids
CPT/HCPCS: 36415; 76801; 81001; 84702; 87635; 99284

== ENCOUNTER 2021-12-27 19:59 | Emergency (ER) | payer BC, OTHER ==
[2021-12-27 20:31] VITALS: BP 107/65; PULSE 80; RESP 20; TEMP 98.6
--- NOTE | 2021-12-27 21:13 | ED ---
General Adult HPI <ShraddhadelmarDayne - Last Filed: 12/28/21 02:26> - General Source: patient, RN notes reviewed, old records reviewed Mode of arrival: ambulatory Limitations: no limitations <Reagan Cole - Last Filed: 12/28/21 23:31> - General Chief complaint: Psychiatric Symptoms Stated complaint: Mental Health Time Seen by Provider: 12/27/21 20:35 - History of Present Illness Initial comments: Patient is a 26-year-old female with past with history remarkable for depression who presents emergency Department complaining of suicidal ideations. States she also feels depressed. Lives with her boyfriend who is an alcoholic. I stressed regarding his alcoholism. Denies any abuse. Endorses suicidal ideations but denies any plans or attempts. Denies any history of this. Denies any hallucinations. Denies any homicidal ideations, attempts, plans. Has no other acute complaints at this time. Denies any recent drug use or alcohol abuse. Is requesting a test. His no other acute complaints. Presents for psychiatric evaluation after speaking with her physician. (Reagan Cole) - Related Data Home Medications Medication Instructions Recorded Confirmed Albuterol Inhaler [Ventolin Hfa 2 puff INHALATION RT-QID PRN 03/18/20 05/13/20 Inhaler] Pnv No.95/Ferrous Fum/Folic AC 1 each PO DAILY 03/18/20 05/13/20 [ Multivitamin Tablet] Deblitane Control Pill 1 tab PO QAM 05/11/20 05/13/20 Previous Rx's Medication Instructions Recorded Acetaminophen Tab [Tylenol Tab] 1,000 mg PO Q6HR PRN #30 tablet 05/13/20 Ibuprofen [Motrin] 600 mg PO Q8HR PRN #30 tab 05/13/20 Allergies Allergy/AdvReac Type Severity Reaction Status Date / Time Penicillins Allergy Rash/Hives Verified 12/27/21 20:31 Review of Systems ROS Other: All systems not noted in ROS Statement are negative. <Dayne Kate - Last Filed: 12/28/21 02:26> ROS Other: All systems not noted in ROS Statement are negative. <Reagan Cole - Last Filed: 12/28/21 23:31> ROS Statement: Those systems with pertinent positive or pertinent negative responses have been documented in the HPI. Review of Systems: CONST: Denies fever EYES: Denies blurry vision ENT: Denies nasal congestion C/V: Denies Chest pain RESP: Denies shortness of breath GI: Denies abdominal pain : Denies dysuria SKIN: Denies rash. MSK: Denies joint pain. NEURO: Denies headache PSYCH: Denies homicidal ideations/plans/attempts. Denies visual or auditory hallucinations. She endorses suicidal ideations. She denies plans or attempts. (Reagan Cole) Past Medical History Past Medical History: Asthma, Skin Disorder Additional Past Medical History / Comment(s): psoriasis History of Any Multi-Drug Resistant Organisms: None Reported Past Surgical History: No Surgical Hx Reported Additional Past Surgical History / Comment(s): lipoma removed Past Anesthesia/Blood Transfusion Reactions: No Reported Reaction Additional Past Anesthesia/Blood Transfusion Reaction / Comment(s): has only had am epidural anesthesia Past Psychological History: Depression Smoking Status: Current every day smoker Past Alcohol Use History: Occasional Past Drug Use History: None Reported - Past Family History Mother Family Medical History: No Reported History <Reagan Cole - Last Filed: 12/28/21 23:31> General Exam Limitations: no limitations <Reagan Cole - Last Filed: 12/28/21 23:31> - General Exam Comments Initial Comments: General: Appears in no acute distress. HEAD: Normal with no signs of head trauma. EYES: PERRLA, EOMI, conjunctiva normal, no discharge. ENT: Hearing grossly intact, normal oropharynx. RESPIRATORY: Clear breath sounds bilaterally. No wheezes, rales, or rhonchi. C/V: Regular rate and rhythm. S1 and S2 auscultated, no edema, peripheral pulses 2+ and intact throughout ABD: Abd is soft, nontender, nondistended EXT: Normal range of motion, no obvious deformity SKIN: No rashes or lesions observed on exposed skin. NEURO: Alert and oriented x 4. (Reagan Cole) Course Vital Signs 12/27/21 20:27 Temperature 98.6 F Pulse Rate 80 Respiratory 20 Rate Blood Pressure 107/65 O2 Sat by Pulse 100 Oximetry Medical Decision Making <Reagan Cole - Last Filed: 12/28/21 23:31> - Medical Decision Making Based on the patient's presentation and physical exam, I do believe she requires psychiatric evaluation. She was placed in green scrubs. Suicide precautions were ordered. Sitter was ordered. BAT is 0. UDS and urine test are pending. Vital signs are within acceptable limits. Patient's test did return positive. UDS is positive for marijuana. I did update the patient regarding her positive test. LMP was last month so she is early on in her at this point. She does have [facility] for follow-up. Has no symptoms. No vaginal discharge or bleeding. I do not believe that further workup is needed. Recommended follow-up with her CLASSER. At this time, patient is medically cleared for evaluation by psychiatry. EPS is notified. Disposition is pending psychiatric evaluation. Patient eventually was cleared for discharge home by EPS. (Reagan Cole) - Lab Data Lab Results 12/27/21 12/27/21 Range/Units 20:51 20:56 Urine HCG, Qual Detected (Not Detectd) Urine Opiates Screen Not Detected (NotDetected) Ur Oxycodone Screen Not Detected (NotDetected) Urine Methadone Screen Not Detected (NotDetected) Ur Propoxyphene Screen Not Detected (NotDetected) Ur Barbiturates Screen Not Detected (NotDetected) U Tricyclic Antidepress Not Detected (NotDetected) Ur Phencyclidine Scrn Not Detected (NotDetected) Ur Amphetamines Screen Not Detected (NotDetected) U Methamphetamines Scrn Not Detected (NotDetected) U Benzodiazepines Scrn Not Detected (NotDetected) Urine Cocaine Screen Not Detected (NotDetected) U Marijuana (THC) Screen Detected H (NotDetected) Disposition Is patient prescribed a controlled substance at d/c from ED?: No <Dayne Kate - Last Filed: 12/28/21 02:26> <Reagan Cole - Last Filed: 12/28/21 23:31> Clinical Impression: Mood disorder Disposition: HOME SELF-CARE Condition: Good Referrals: Garrett Almeida MD [Primary Care Provider] - 1-2 days
[2021-12-27 21:27] LABS: Amphetamine Screen,Urine Not Detected (NotDetected); Barbiturate Screen,Urine Not Detected (NotDetected); Benzodiazepines Screen,Urine Not Detected (NotDetected); Cocaine Screen,Urine Not Detected (NotDetected); Methadone Screen, Urine Not Detected (NotDetected); Opiate Screen,Urine Not Detected (NotDetected); Oxycodone Screen, Urine Not Detected (NotDetected); Phencyclidine Screen,Urine Not Detected (NotDetected); Tricyclic Antidepressant,Urine Not Detected (NotDetected); Urn Cannabinoid Scrn Detected (NotDetected)
== END 2021-12-28 02:44 | disposition home or self-care (01) ==
LOC: EC 19:59
DX: F39 Unspecified mood [affective] disorder (principal); J45.909 Unspecified asthma, uncomplicated; F32.A Depression, unspecified; F17.200 Nicotine dependence, unspecified, uncomplicated; Z79.51 Long term (current) use of inhaled steroids; Z88.0 Allergy status to penicillin
CPT/HCPCS: 80306; 81025; 82075; 99285

== ENCOUNTER 2022-06-19 21:08 | Emergency (ER) | payer BC, OTHER ==
[2022-06-19] MEDS ORDERED: IPRATROPIUM-ALBUTEROL 3 ML NEB INHALATION STA (21:49)
[2022-06-19] MEDS ORDERED: dexAMETHasone 4 MG TAB PO STA (21:50)
--- NOTE | 2022-06-19 22:10 | ED ---
General Adult HPI - General Chief complaint: Upper Respiratory Infection Stated complaint: Chest Pain, Shortness of Breath, Cough Time Seen by Provider: 06/19/22 21:39 Source: patient Mode of arrival: ambulatory Limitations: no limitations - History of Present Illness Initial comments: Dictation was produced using [employer] dictation software. please excuse any grammatical, word or spelling errors. Chief Complaint: 26-year-old male presents emergency Department with shortness of breath History of Present Illness: Patient 18-year-old female she has past medical history of childhood asthma. For the last 4 days she has been suffering from respiratory infectious symptoms. Patient's visual breath and wheezing. She did complete a course of Zithromax pack. Patient was willing that her symptoms may pose a threat to her baby. She is allegedly 29 weeks . Denies any fever, chills or night sweats. She has been having some coughing. Cough is dry and nonproductive. The ROS documented in this emergency department record has been reviewed and confirmed by me. Those systems with pertinent positive or negative responses have been documented in the HPI. All other systems are other negative and/or noncontributory. - Related Data Home Medications Medication Instructions Recorded Confirmed Albuterol Inhaler [Ventolin Hfa 2 puff INHALATION RT-QID PRN 03/18/20 05/13/20 Inhaler] Pnv No.95/Ferrous Fum/Folic AC 1 each PO DAILY 03/18/20 05/13/20 [ Multivitamin Tablet] Deblitane Control Pill 1 tab PO QAM 05/11/20 05/13/20 Previous Rx's Medication Instructions Recorded Acetaminophen Tab [Tylenol Tab] 1,000 mg PO Q6HR PRN #30 tablet 05/13/20 Ibuprofen [Motrin] 600 mg PO Q8HR PRN #30 tab 05/13/20 Albuterol Inhaler [Ventolin Hfa 1 - 2 puff INHALATION RT-Q6H PRN 06/20/22 Inhaler] #1 each Allergies Allergy/AdvReac Type Severity Reaction Status Date / Time Penicillins Allergy Rash/Hives Verified 06/19/22 21:16 Review of Systems ROS Statement: Those systems with pertinent positive or pertinent negative responses have been documented in the HPI. ROS Other: All systems not noted in ROS Statement are negative. Past Medical History Past Medical History: Asthma, Skin Disorder Additional Past Medical History / Comment(s): psoriasis History of Any Multi-Drug Resistant Organisms: None Reported Past Surgical History: No Surgical Hx Reported Additional Past Surgical History / Comment(s): lipoma removed Past Anesthesia/Blood Transfusion Reactions: No Reported Reaction Additional Past Anesthesia/Blood Transfusion Reaction / Comment(s): has only had am epidural anesthesia Past Psychological History: Depression Smoking Status: Current every day smoker Past Alcohol Use History: Occasional Past Drug Use History: None Reported - Past Family History Mother Family Medical History: No Reported History General Exam - General Exam Comments Initial Comments: PHYSICAL EXAM: General Impression: Alert and oriented x3, not in acute distress HEENT: Normocephalic atraumatic, extra-ocular movements intact, pupils equal and reactive to light bilaterally, mucous membranes moist. Cardiovascular: Heart regular rate and rhythm Chest: Able to complete full sentences, no retractions, no tachypnea, diffuse wheezing and rhonchi Abdomen: abdomen soft, non-tender, non-distended, no organomegaly, appropriately gravid Musculoskeletal: Pulses present and equal in all extremities, no peripheral edema Motor: no focal deficits noted Neurological: CN II-XII grossly intact, no focal motor or sensory deficits noted Skin: Intact with no visualized rashes Psych: Normal affect and mood Limitations: no limitations Course Vital Signs 06/19/22 06/19/22 06/19/22 21:14 21:54 22:03 Temperature 98.9 F Pulse Rate 89 76 88 Respiratory 20 Rate Blood Pressure 110/52 O2 Sat by Pulse 97 Oximetry 06/20/22 01:12 Temperature 98.2 F Pulse Rate 84 Respiratory 16 Rate Blood Pressure 108/61 O2 Sat by Pulse 96 Oximetry Medical Decision Making - Medical Decision Making Was pt. sent in by a medical professional or institution (, PA, FLAME CUTTING SUPERVISOR, urgent care, hospital, or correction...) When possible be specific @ -No Did you speak to anyone other than the patient for history (EMS, parent, family, police, friend...)? What history was obtained from this source @ -No Did you review nursing and triage notes (agree or disagree)? Why? @ -I reviewed and agree with nursing and triage notes Were old charts reviewed (outside hosp., previous admission, EMS record, old EKG, old radiological studies, urgent care reports/EKG's, correction records)? Report findings @ -No old charts were reviewed Differential Diagnosis (chest pain, altered mental status, abdominal pain women, abdominal pain men, vaginal bleeding, musculoskeletal, weakness, fever, dyspnea, syncope, headache, dizziness, GI bleed, back pain, seizure, CVA, palpatations, mental health)? @ -Differential Dyspnea: Coronary syndrome, arrhythmia, tamponade, asthma, COPD, pulmonary embolism, pneumonia, pneumothorax, pulmonary effusion, anaphylaxis, diabetic ketoacidosis, flailed chest, pulmonary contusion, diaphragmatic rupture, anemia, neuromuscular, this is not meant to be an all-inclusive list. EKG interpreted by me (3pts min.). @ -None done X-rays interpreted by me (1pt min.). @ -Nonacute CT interpreted by me (1pt min.). @ -None done U/S interpreted by me (1pt. min.). @ -None done What testing was considered but not performed or refused? (CT, X-rays, U/S, labs)? Why? @ -None What meds were considered but not given or refused? Why? @ -None Did you discuss the management of the patient with other professionals (professionals i.e. , PA, FLAME CUTTING SUPERVISOR, lab, RT, psych nurse, pediatric social worker, biztalk developer, teacher, sewage reticulation drafting officer, caseworker)? Give summary @ -No Was smoking cessation discussed for >3mins.? @ -No Was critical care preformed (if so, how long)? @ -No Were there social determinants of health that impacted care today? How? (Homelessness, low income, unemployed, alcoholism, drug addiction, mcdonnell sportation, low edu. Level, literacy, decrease access to med. care, retirement, rehab)? @ -[No] Was there de-escalation of care discussed even if they declined (Discuss DNR or withdrawal of care, Hospice)? DNR status @ -[No] What co-morbidities impacted this encounter? (DM, HTN, Smoking, COPD, CAD, Cancer, CVA, ARF, Chemo, Hep., AIDS, mental health diagnosis, sleep apnea, morbid obesity)? @ - Was patient admitted / discharged? Hospital course, mention meds given and route, prescriptions, significant lab abnormalities, going to OR and other pertinent info. @ -26-year-old female presents to the ER for chief complaint of dyspnea. Clinical presentation consistent with asthma exacerbation. Patient given breathing treatment and Decadron. Objective emergency department for several hours. Patient reports significant improvement of her symptoms. P atient requesting discharge. Advised follow-up with [facility] and primary care doctor. Patient prescription for albuterol inhaler Undiagnosed new problem with uncertain prognosis? @ -[No] Drug Therapy requiring intensive monitoring for toxicity (Heparin, Nitro, Insulin, Cardizem)? @ -[No] Were any procedures done? @ -[No] Diagnosis/symptom? Acute, or Chronic, or Acute on Chronic? Uncomplicated (without systemic symptoms) or Complicated (systemic symptoms)? @ -1. Asthma exacerbation Side effects of treatment? @ -[No] Exacerbation, Progression, or Severe Exacerbation? @ -[No] Poses a threat to life or bodily function? How? (Chest pain, [place], [place], pneumonia, PE, COPD, DKA, ARF, appy, cholecystitis, CVA, Diverticulitis, Homicidal, Suicidal, threat to staff... and all critical care pts) @ -yes - Lab Data Lab Results 06/19/22 Range/Units 21:18 Influenza Type A (PCR) Not Detected (Not Detectd) Influenza Type B (PCR) Not Detected (Not Detectd) RSV (PCR) Not Detected (Not Detectd) SARS-CoV-2 (PCR) Not Detected (Not Detectd) Disposition Clinical Impression: Asthma exacerbation Disposition: HOME SELF-CARE Condition: Good Instructions (If sedation given, give patient instructions): Asthma (ED) Prescriptions: Albuterol Inhaler [Ventolin Hfa Inhaler] 1 - 2 puff INHALATION RT-Q6H PRN #1 each PRN Reason: Dyspnea Is patient prescribed a controlled substance at d/c from ED?: No Referrals: Garrett Almeida MD [Primary Care Provider] - 1-2 days Time of Disposition: 22:46
--- NOTE | 2022-06-19 22:15 | XR ---
EXAMINATION TYPE: XR chest 2V DATE OF EXAM: 06/19/2022 COMPARISON: NONE HISTORY: Cough and wheeze. TECHNIQUE: Frontal and lateral views of the chest are obtained. FINDINGS: Overlying bra strap. Central perihilar peribronchial cuffing. There is no suspicious perip heral focal air space opacity, pleural effusion, or pneumothorax seen. The cardiac silhouette size i s within normal limits. The osseous structures are intact. IMPRESSION: Bilateral central perihilar peribronchial cuffing consistent with reactive airway diseas e possibly from acute asthma exacerbation. Correlate clinically.
[2022-06-20 01:12] VITALS: BP 108/61; PULSE 84; RESP 16; TEMP 98.2
== END 2022-06-20 01:28 | disposition home or self-care (01) ==
LOC: EC 21:08
DX: O99.513 Diseases of the respiratory system complicating pregnancy, third trimester (principal); O9A.513 Psychological abuse complicating pregnancy, third trimester; O99.333 Smoking (tobacco) complicating pregnancy, third trimester; J45.901 Unspecified asthma with (acute) exacerbation; F17.200 Nicotine dependence, unspecified, uncomplicated; F32.A Depression, unspecified; Z79.899 Other long term (current) drug therapy; Z88.0 Allergy status to penicillin; Z20.822 Contact with and (suspected) exposure to COVID-19; Z3A.29 29 weeks gestation of pregnancy
CPT/HCPCS: 94640; 87636; 71046; 99283; J8540

== ENCOUNTER 2022-08-15 15:39 | Outpatient (CLI) | payer BC, OTHER ==
[2022-08-15 16:30] VITALS: BP 116/56; PULSE 82; RESP 17; TEMP 96.6
--- NOTE | 2022-08-17 06:36 | P.MSEPDOC ---
Presenting Problems - Arrival Data Date of Arrival on Unit: 08/15/22 Time of Arrival on Unit: 15:39 Mode of Transport: Ambulatory - Complaint OB-Reason for Admission/Chief Complaint: Rule Out SROM Comment: pt presents to triage for possible SROM within the last hour Medical History - Information : 5 Para: 2 Term: 1 : 1 Abortions: Spontaneous or Elective: 2 Number of Living Children: 2 - Gestational Age Gestational Age by MERVAT (wks/days): 36 Weeks and 6 Days - History Complications: Prior Review of Systems - Review of Systems Constitutional: No problems Breast: No problems ENT: No problems Cardiovascular: No problems Respiratory: No problems Gastrointestinal: No problems Genitourinary: No problems Musculoskeletal: No problems Neurological: No problems Skin: No problems Vital Signs - Temperature Temperature: 96.6 F Temperature Source: Temporal Artery Scan - Pulse Apical Pulse Rate: 82 Pulse Assessment Method: Automatic Cuff - Respirations Respiratory Rate: 17 Oxygen Delivery Method: Room Air O2 Sat by Pulse Oximetry: 99 - Blood Pressure Right Arm Blood Pressure: 116/56 Blood Pressure Mean: 76 Blood Pressure Source: Automatic Cuff Medical Screen Scoring - Cervical Exam Dilation (cm): 0.5 Effacement (%): 70 Station: -3 Membranes: Intact - Uterine Contractions Frequency From (mins): 5 Frequency To (mins): 7 Duration From (seconds): 50 Duration To (seconds): 70 Intensity: Mild Resting: Soft to palpation - Assessment - Baby A Baseline FHR: 130 Heart Rate - NICHD Category: Category I (Normal) NST: Reactive Physician Notification - Physician Notified Physician Notified Date: 08/15/22 Physician Notified Time: 16:16 Physician: Shorty Lyle - Notification Comment Comment: amniosure negative, cervical exam ft/70/-3, pt has appt with Dr. Lyle on 08/22 in the office Maternal Triage Index - Maternal Triage Index Presenting for scheduled procedure w/no complaint: No - Stat/Priority 1 Stat Priority 1: No - Urgent/Priority 2 Urgent Priority 2: No - Prompt/Priority 3 Prompt Priority 3: Yes Criteria Met for Priority 3: pt presents to triage for possible SROM within the last hour Disposition - Disposition OB Disposition: Triage, Discharge to home, Written follow up instructions reviewed Discharge Date: 06/28/23 Discharge Time: 16:30 I agree with the RN Medical Screening Exam: Yes Case reviewed; plan agreed upon as documented in EMR&OBIX.: Yes Diagnosis: FALSE LABOR AT OR AFTER 37 COMPLETED WEEKS OF GESTATION
== END 2022-08-15 16:30 | disposition home or self-care (01) ==
LOC: FBPOP 15:39
PROVIDERS: ATTEND Obstetrics & Gynecology
DX: O47.1 False labor at or after 37 completed weeks of gestation (principal); O09.213 Supervision of pregnancy with history of pre-term labor, third trimester; O99.333 Smoking (tobacco) complicating pregnancy, third trimester; F17.200 Nicotine dependence, unspecified, uncomplicated; Z3A.36 36 weeks gestation of pregnancy
CPT/HCPCS: 59025; 84112; 99213

== ENCOUNTER 2022-08-28 11:31 | Outpatient (CLI) | payer BC, OTHER ==
[2022-08-28 13:23] VITALS: BP 117/79; PULSE 81; RESP 16; TEMP 96.5
--- NOTE | 2022-08-28 17:18 | P.MSEPDOC ---
Presenting Problems - Arrival Data Date of Arrival on Unit: 08/28/22 Time of Arrival on Unit: 11:31 Mode of Transport: Ambulatory - Complaint OB-Reason for Admission/Chief Complaint: Possible Onset of Labor Medical History - Information : 5 Para: 2 Term: 1 : 1 Abortions: Spontaneous or Elective: 2 Number of Living Children: 2 - Gestational Age Gestational Age by MERVAT (wks/days): 38 Weeks and 5 Days Review of Systems - Review of Systems Constitutional: No problems Breast: No problems ENT: No problems Cardiovascular: No problems Respiratory: No problems Gastrointestinal: No problems Genitourinary: No problems Musculoskeletal: No problems Neurological: No problems Skin: No problems Vital Signs - Temperature Temperature: 96.5 F Temperature Source: Temporal Artery Scan - Pulse Right Sitting Pulse Rate: 81 Pulse Assessment Method: Automatic Cuff - Respirations Respiratory Rate: 16 Oxygen Delivery Method: Room Air - Blood Pressure Right Arm Blood Pressure: 117/79 Blood Pressure Mean: 91 Blood Pressure Source: Automatic Cuff Medical Screen Scoring - Cervical Exam Dilation (cm): 3.5 Effacement (%): 50 Station: -2 Membranes: Intact - Uterine Contractions Frequency From (mins): 4 Frequency To (mins): 6 Duration From (seconds): 50 Duration To (seconds): 80 Intensity: Mild Resting: Soft to palpation - Assessment - Baby A Baseline FHR: 135 Heart Rate - NICHD Category: Category I (Normal) NST: Reactive Physician Notification - Physician Notified Physician Notified Date: 08/28/22 Physician Notified Time: 12:12 Physician: Shorty Lyle New Order Received: Yes (d/c home if no cervical change) Maternal Triage Index - Prompt/Priority 3 Prompt Priority 3: Yes Criteria Met for Priority 3: contrx every 4-6 minutes, reactive nst, vag exam no change after 1 hour Disposition - Disposition OB Disposition: Discharge to home, Written follow up instructions reviewed Discharge Date: 08/28/22 Discharge Time: 13:05 I agree with the RN Medical Screening Exam: Yes Case reviewed; plan agreed upon as documented in EMR&OBIX.: Yes Diagnosis: FALSE LABOR AT OR AFTER 37 COMPLETED WEEKS OF GESTATION
== END 2022-08-28 13:05 | disposition home or self-care (01) ==
LOC: FBPOP 11:31
PROVIDERS: ATTEND Obstetrics & Gynecology
DX: O47.1 False labor at or after 37 completed weeks of gestation (principal); O99.333 Smoking (tobacco) complicating pregnancy, third trimester; F17.200 Nicotine dependence, unspecified, uncomplicated; Z3A.38 38 weeks gestation of pregnancy
CPT/HCPCS: 59025; 99213

== ENCOUNTER 2022-08-29 00:58 | Inpatient (IN) | payer OTHER ==
[2022-08-29] MEDS ORDERED: METHYLERGONOVINE 0.2 MG/ML 1 ML AMP IM PRN (01:22)
[2022-08-29] MEDS ORDERED: miSOPROStoL 200 MCG TAB PO PRN (01:22)
[2022-08-29] MEDS ORDERED: OXYTOCIN 10 UNIT/ML 1 ML VIAL IM PRN (01:22)
[2022-08-29] MEDS ORDERED: CARBOPROST TROMETHAMINE 250 MCG/ML 1 ML AMP IM PRN (01:22)
[2022-08-29] MEDS ORDERED: LIDOCAINE 0.5% (PF) 5 MG/ML (50 ML SDV) SQ PRN (01:22)
[2022-08-29] MEDS ORDERED: TERBUTALINE 1 MG/ML VIAL SQ PRN (01:22)
[2022-08-29] MEDS ORDERED: TRANEXAMIC 1,000 MG/100ML-NACL 1,000 MG in EMPTY BAG 1 BAG IV PRN (01:22)
[2022-08-29 01:51] LABS: Basophils # (A) 0.1 k/uL (0-0.2); Basophils % (A) 0 %; Eosinophils # (A) 0.3 k/uL (0-0.7); Eosinophils % (A) 2 %; HCT 40.5 % (34.0-46.0); HGB 13.3 gm/dL (11.4-16.0); Lymphocytes # (A) 2.7 k/uL (1.0-4.8); Lymphocytes % (A) 16 %; MCHC 32.9 g/dL (31.0-37.0); MCV 88.2 fL (80.0-100.0); Mean Platelet Volume 7.6; Monocytes # (A) 0.9 k/uL (0-1.0); Monocytes % (A) 5 %; Neutrophils # (A) 12.6 k/uL (1.3-7.7); Neutrophils % (A) 76 %; Platelet Count 316 k/uL (150-450); RDW 13.2 % (11.5-15.5); WBC 16.6 k/uL (3.8-10.6)
--- NOTE | 2022-08-29 02:19 | P.HPOB ---
History of Present Illness H&P Date: 08/29/22 Chief Complaint: Labor 26 year old presents at 38 weeks and 6 days in active labor. Her cervix is 6-7 cm dilated, 80% effaced, -2 station. She is katherine every 3-7 minutes. heart tones are 140 with moderate variability and reactive. Review of Systems All systems: negative Constitutional: Denies chills, Denies fever Eyes: denies blurred vision, denies pain Ears, nose, mouth and throat: Denies headache, Denies sore throat Cardiovascular: Denies chest pain, Denies shortness of breath Respiratory: Denies cough Gastrointestinal: Denies abdominal pain, Denies diarrhea, Denies nausea, Denies vomiting Genitourinary: Denies dysuria, Denies hematuria Musculoskeletal: Denies myalgias Integumentary: Denies pruritus, Denies rash Neurological: Denies numbness, Denies weakness Psychiatric: Denies anxiety, Denies depression Endocrine: Denies fatigue, Denies weight change Past Medical History Past Medical History: Asthma, Skin Disorder Additional Past Medical History / Comment(s): psoriasis History of Any Multi-Drug Resistant Organisms: None Reported Past Surgical History: No Surgical Hx Reported Additional Past Surgical History / Comment(s): lipoma removed Past Anesthesia/Blood Transfusion Reactions: No Reported Reaction Additional Past Anesthesia/Blood Transfusion Reaction / Comment(s): has only had am epidural anesthesia Smoking Status: Former smoker - Past Family History Mother Family Medical History: No Reported History Medications and Allergies Home Medications Medication Instructions Recorded Confirmed Type Albuterol Inhaler [Ventolin Hfa 2 puff INHALATION RT-QID PRN 03/18/20 08/28/22 History Inhaler] Pnv No.95/Ferrous Fum/Folic AC 1 each PO DAILY 03/18/20 08/29/22 History [ Multivitamin Tablet] Acetaminophen Tab [Tylenol Tab] 1,000 mg PO Q6HR PRN #30 tablet 05/13/20 08/28/22 Rx Albuterol Inhaler [Ventolin Hfa 1 - 2 puff INHALATION RT-Q6H PRN 06/20/22 08/28/22 Rx Inhaler] #1 each Acyclovir [Zovirax] 400 mg PO TID 08/15/22 08/29/22 History Allergies Allergy/AdvReac Type Severity Reaction Status Date / Time No Known Allergies Allergy Verified 08/28/22 12:03 Exam Osteopathic Statement: *. No significant issues noted on an osteopathic structural exam other than those noted in the History and Physical/Consult. Vital Signs Temp Pulse Resp BP Pulse Ox 08/29/22 01:01 98.0 F 90 16 119/74 98 Intake and Output 08/28/22 08/28/22 08/29/22 14:59 22:59 06:59 Other: Weight 90.718 kg Heart: Regular rate and rhythm Lungs: Clear to auscultation bilaterally Abdomen: Soft, nontender Extremities: Negative Homans sign Results Result Diagrams: 08/29/22 01:37 Abnormal Lab Results - Last 24 Hours (Table) 08/29/22 Range/Units 01:37 WBC 16.6 H (3.8-10.6) k/uL Neutrophils # 12.6 H (1.3-7.7) k/uL Assessment and Plan (1) Normal labor Current Visit: Yes Status: Acute Code(s): O80 - ENCOUNTER FOR FULL-TERM UNCOMPLICATED DELIVERY; Z37.9 - OUTCOME OF DELIVERY, UNSPECIFIED SNOMED Code(s): 58477870 Plan: 1. Admit to family place 2. Expectant management 3. Anticipate normal vaginal delivery
[2022-08-29] MEDS: LACTATED RINGERS 1,000 ML IV SCH ×2 (02:25→06:40)
[2022-08-29] MEDS ORDERED: PHENYLEPHRINE 10 MG/ML VIAL ONE (02:34)
[2022-08-29] MEDS ORDERED: SODIUM CHLORIDE 0.9% 100 ML BAG ONE (02:34)
[2022-08-29] MEDS ORDERED: ROPIVACAINE 5 MG/ML 20 ML AMPULE ONE (02:34)
[2022-08-29] MEDS ORDERED: fentaNYL (PF) 50 MCG/ML 5 ML AMP ONE (02:34)
[2022-08-29] MEDS ORDERED: diphenhydrAMINE 50 MG/ML 1 ML VIAL IVP PRN ×2 (05:26)
[2022-08-29] MEDS ORDERED: diphenhydrAMINE 25 MG CAP PO PRN (05:26)
[2022-08-29] MEDS ORDERED: ZOLPIDEM 5 MG TAB PO PRN (05:26)
[2022-08-29] MEDS ORDERED: LANOLIN CREAM 5 GM TUBE TOPICAL PRN (05:26)
[2022-08-29] MEDS ORDERED: BENZOCAINE/MENTHOL SPRAY 1 GM/SPRAY AEROSOL TOPICAL PRN (05:26)
[2022-08-29] MEDS ORDERED: HYDROCORTISONE 2.5% RECTAL CREAM 30 GM TUBE RECTAL PRN (05:26)
[2022-08-29] MEDS ORDERED: diphenhydrAMINE 50 MG CAP PO PRN (05:26)
[2022-08-29] MEDS ORDERED: SIMETHICONE 80 MG CHEWABLE PO PRN (05:26)
--- NOTE | 2022-08-29 05:29 | P.PROBDLV ---
Vaginal Delivery Note - . Vaginal Delivery Note: 26 year old presents at 38 weeks and 6 days in active labor. Her cervix is 6-7 cm dilated, 80% effaced, -2 station. She is katherine every 3-7 minutes. heart tones are 140 with moderate variability and reactive. Patient got an epidural and was comfortable. Amniotomy performed at 3:41 AM, clear fluid noted. Patient progressed to complete by 5 AM. She pushed once and delivered a viable male infant over intact perineum under epidural anesthesia at 5:18 AM. Head delivered OA, anterior shoulder delivered gentle downward guidance followed by posterior shoulder and rest of body. Nose and mouth bulb suctioned, cord clamped and cut, infant placed mother's abdomen. Apgars 9, 9, weight pending. Placenta delivered spontaneously, intact with full still cord at 520. Vagina, cervix, perineum inspected. No lacerations noted. Estimated blood loss 200 mL. Mother and baby in stable condition.
[2022-08-29] MEDS ORDERED: OXYTOCIN 30 UNITS/500 ML NS 30 UNIT in SALINE 1 500ML.BAG IV SCH (05:30)
[2022-08-29] MEDS: SENNOSIDES-DOCUSATE SODIUM 1 EACH TAB PO SCH ×2 (07:36→19:51)
[2022-08-29] MEDS: IBUPROFEN 600 MG TAB PO PRN ×2 (07:36→15:35)
[2022-08-29] MEDS: ACETAMINOPHEN TAB 325 MG TAB PO PRN ×2 (10:29→19:51)
[2022-08-30] MEDS: IBUPROFEN 600 MG TAB PO PRN ×3 (00:20→20:19)
[2022-08-30 06:13] LABS: Basophils # (A) 0.1 k/uL (0-0.2); Basophils % (A) 0 %; Eosinophils # (A) 0.4 k/uL (0-0.7); Eosinophils % (A) 3 %; HCT 34.2 % (34.0-46.0); HGB 11.6 gm/dL (11.4-16.0); Lymphocytes # (A) 3.6 k/uL (1.0-4.8); Lymphocytes % (A) 25 %; MCH 29.8 pg (25.0-35.0); MCHC 33.7 g/dL (31.0-37.0); MCV 88.3 fL (80.0-100.0); Mean Platelet Volume 7.6; Monocytes # (A) 0.7 k/uL (0-1.0); Monocytes % (A) 5 %; Neutrophils # (A) 9.8 k/uL (1.3-7.7); Neutrophils % (A) 67 %; Platelet Count 257 k/uL (150-450); RBC 3.88 m/uL (3.80-5.40); RDW 13.3 % (11.5-15.5); WBC 14.7 k/uL (3.8-10.6)
--- NOTE | 2022-08-30 06:43 | P.PNOBGVD ---
Subjective - Subjective Patient reports: Reports appetite normal, Reports voiding normally, Reports pain well controlled, Reports ambulating normally : doing well Objective - Latest Vital Signs Latest vital signs: Vital Signs Temp Pulse Resp BP Pulse Ox 08/30/22 00:00 97.9 F 63 16 106/70 99 08/29/22 16:00 97.8 F 81 18 102/67 96 08/29/22 12:00 98.5 F 98 18 124/69 98 08/29/22 08:00 18 08/29/22 07:35 97.7 F 93 18 124/73 98 08/29/22 07:05 83 16 113/59 98 Intake and Output 08/29/22 08/29/22 08/30/22 14:59 22:59 06:59 Intake Total 540 Output Total 154 Balance -154 540 Intake: Oral 540 Output: Estimated Blood Loss 154 Other: Voiding Method Toilet # Voids 2 1 2 - Exam Lungs: bilateral: normal Chest: Normal S1, Normal S2 Extremities: Present: normal Abdomen: Present: normal appearance, soft Uterus: Present: normal, firm - Labs Labs: Abnormal Lab Results - Last 24 Hours (Table) 08/30/22 Range/Units 05:47 WBC 14.7 H (3.8-10.6) k/uL Neutrophils # 9.8 H (1.3-7.7) k/uL Assessment and Plan Assessment: day #1. Patient is resting without complaints. Vital signs are stable she's afebrile. Uterus is firm nontender she's having normal lochia. Plan is to continue routine care patient wishes to go home tomorrow. (1) Normal labor Current Visit: Yes Status: Acute Code(s): O80 - ENCOUNTER FOR FULL-TERM UNCOMPLICATED DELIVERY; Z37.9 - OUTCOME OF DELIVERY, UNSPECIFIED SNOMED Code(s): 10458429
[2022-08-30] MEDS: SENNOSIDES-DOCUSATE SODIUM 1 EACH TAB PO SCH ×2 (08:40→20:19)
[2022-08-30] MEDS: ACETAMINOPHEN TAB 325 MG TAB PO PRN (08:40)
--- NOTE | 2022-08-30 10:28 | P.MSEPDOC ---
Presenting Problems - Arrival Data Date of Arrival on Unit: 08/29/22 Time of Arrival on Unit: 00:58 Mode of Transport: EMS - Complaint OB-Reason for Admission/Chief Complaint: Possible Onset of Labor Comment: katherine all day, strong contractions since 2099 Medical History - Information : 5 Para: 2 Term: 1 : 1 Abortions: Spontaneous or Elective: 2 Number of Living Children: 2 - Gestational Age Gestational Age by MERVAT (wks/days): 38 Weeks and 6 Days - History Sexually Transmitted Diseases: HSV Comment: no outbreaks for past 6 months to 1 year Review of Systems - Review of Systems Constitutional: No problems Breast: No problems ENT: No problems Cardiovascular: No problems Respiratory: No problems Gastrointestinal: No problems Genitourinary: No problems Musculoskeletal: No problems Neurological: No problems Skin: No problems Vital Signs - Temperature Temperature: 98.2 F Temperature Source: Oral - Pulse Right Sitting Pulse Rate: 89 Pulse Assessment Method: Pulse Oximetry - Respirations Respiratory Rate: 16 Oxygen Delivery Method: Room Air O2 Sat by Pulse Oximetry: 97 - Blood Pressure Right Arm Sitting Blood Pressure: 114/79 Blood Pressure Mean: 90 Blood Pressure Source: Automatic Cuff Medical Screen Scoring - Cervical Exam Dilation (cm): 6 Effacement (%): 80 Station: -2 Membranes: Intact - Assessment - Baby A Baseline FHR: 135 Heart Rate - NICHD Category: Category I (Normal) NST: Reactive Physician Notification - Physician Notified Physician Notified Date: 08/29/22 Physician Notified Time: 01:16 Physician: Cheri Branch Order Received: Yes Maternal Triage Index - Maternal Triage Index Presenting for scheduled procedure w/no complaint: No - Stat/Priority 1 Stat Priority 1: No - Urgent/Priority 2 Urgent Priority 2: No - Prompt/Priority 3 Prompt Priority 3: No - Non-Urgent/Priority 4 Non-Urgent Priority 4: Yes Criteria Met for Priority 4: contractions, possible srom Disposition - Disposition OB Disposition: Admit, LDRP Suite I agree with the RN Medical Screening Exam: Yes Case reviewed; plan agreed upon as documented in EMR&OBIX.: Yes Diagnosis: ENCOUNTER FOR FULL-TERM UNCOMPLICATED DELIVERY
--- NOTE | 2022-08-31 06:11 | P.PNOBGVD ---
Subjective - Subjective Patient reports: Reports appetite normal, Reports voiding normally, Reports pain well controlled, Reports ambulating normally : doing well Objective - Latest Vital Signs Latest vital signs: Vital Signs Temp Pulse Resp BP Pulse Ox 08/31/22 00:00 97.7 F 80 16 120/78 97 08/30/22 16:00 98.0 F 76 16 108/68 97 08/30/22 10:28 98.2 F 89 16 114/79 97 08/30/22 08:00 98.2 F 89 16 114/79 97 Intake and Output 08/30/22 08/30/22 08/31/22 14:59 22:59 06:59 Other: # Voids 2 2 2 - Exam Lungs: bilateral: normal Chest: Normal S1, Normal S2 Extremities: Present: normal Abdomen: Present: normal appearance, soft Uterus: Present: normal, firm - Labs Labs: Abnormal Lab Results - Last 24 Hours (Table) 08/30/22 Range/Units 05:47 WBC 14.7 H (3.8-10.6) k/uL Neutrophils # 9.8 H (1.3-7.7) k/uL Assessment and Plan Assessment: day #2. Patient is resting without complaints and wishes to go home. Vital signs are stable she's afebrile. Uterus is firm nontender and she is having normal lochia. My impression this is a normal course. Plan is to continue routine care discharge home later today. (1) Normal labor Current Visit: Yes Status: Acute Code(s): O80 - ENCOUNTER FOR FULL-TERM UNCOMPLICATED DELIVERY; Z37.9 - OUTCOME OF DELIVERY, UNSPECIFIED SNOMED Code(s): 58275277
--- NOTE | 2022-08-31 06:14 | P.DS ---
Providers Date of admission: 08/29/22 01:19 Expected date of discharge: 08/31/22 Attending physician: Shorty Lyle Primary care physician: Stated None - Discharge Diagnosis(es) (1) Normal labor Current Visit: Yes Status: Acute Hospital Course: Please see dictated H&P for intimate details of this patient's admission. In brief summary this is a pleasant 26-year-old 5 para 2 female 38-6/7 weeks gestation who is admitted to labor and delivery in active labor. Patient quickly goes on to have a vaginal delivery viable male . Please see di ctated delivery note. day #1 patient's doing well. On #2 she is felt to be stable for discharge home follow up with me in 6 weeks. Procedures: Normal spontaneous vaginal delivery Patient Condition at Discharge: Good Plan - Discharge Summary New Discharge Prescriptions: New Ibuprofen [Motrin] 600 mg PO Q6HR PRN #30 tab PRN Reason: Mild Pain (Scale 1 To 3) No Action Pnv No.95/Ferrous Fum/Folic AC [ Multivitamin Tablet] 1 each PO DAILY Acyclovir [Zovirax] 400 mg PO TID Discharge Medication List Pnv No.95/Ferrous Fum/Folic AC [ Multivitamin Tablet] 1 each PO DAILY 03/18/20 [History] Acyclovir [Zovirax] 400 mg PO TID 08/15/22 [History] Ibuprofen [Motrin] 600 mg PO Q6HR PRN #30 tab 08/30/22 [Rx] Follow up Appointment(s)/Referral(s): Shorty Lyle MD [STAFF PHYSICIAN] - 10/11/22 9:45 am Patient Instructions/Handouts: Vaginal Delivery (DC) Activity/Diet/Wound Care/Special Instructions: No intercourse or anything per vagina for 6 weeks. Please call if any fever, chills, excessive vaginal bleeding, and/or abdominal pain. Discharge Disposition: HOME SELF-CARE
[2022-08-31] MEDS: SENNOSIDES-DOCUSATE SODIUM 1 EACH TAB PO SCH (09:02)
[2022-08-31] MEDS: IBUPROFEN 600 MG TAB PO PRN (09:02)
[2022-08-31 09:32] VITALS: BP 107/69; PULSE 78; RESP 20; TEMP 98.2
== END 2022-08-31 12:39 | disposition home or self-care (01) | DRG 560 ==
LOC: FBPOP 00:58 → 4FBP 01:19
PROVIDERS: ADMIT Obstetrics & Gynecology; ATTEND Obstetrics & Gynecology
PROC: 10E0XZZ Delivery of Products of Conception, External Approach (ICD-10-PCS; principal; 2022-08-29)
PROC: 10907ZC Drainage of Amniotic Fluid, Therapeutic from Products of Conception, Via Natural or Artificial Opening (ICD-10-PCS; 2022-08-29)
PROC: 3E0R3BZ Introduction of Anesthetic Agent into Spinal Canal, Percutaneous Approach (ICD-10-PCS; 2022-08-29)
DX: O80 Encounter for full-term uncomplicated delivery (principal); Z37.0 Single live birth; Z28.310 Unvaccinated for COVID-19; Z87.891 Personal history of nicotine dependence; Z3A.38 38 weeks gestation of pregnancy; Z86.19 Personal history of other infectious and parasitic diseases
CPT/HCPCS: 84112; 85025; 86850; 86900; 86901; 99213